=== PATIENT | male | born 1985 | race Caucasian/White ===

== ENCOUNTER 2016-12-21 16:41 | Emergency (ER) | payer MEDICAID, OTHER, SELFPAY | END 2016-12-21 17:23 | disposition left against medical advice (07) | LOC: ED 17:17 | DX: R51 Headache (principal) ==

== ENCOUNTER 2019-06-08 12:34 | Emergency (ER) | payer SELFPAY ==
[~2019-06-08] VITALS: Ht 182.9 cm; Wt 72.4 kg
--- NOTE | 2019-06-08 13:07 | NUR ---
NA X 1
[2019-06-08 13:18] VITALS: BP 130/90
--- NOTE | 2019-06-08 13:36 | NUR ---
RADIOLOGY DELAY: NO ANSWER @ 0920
--- NOTE | 2019-06-08 14:20 | NUR ---
NA X 1 [id number]
--- NOTE | 2019-06-08 14:46 | NUR ---
NOT IN LOBBY
== END 2019-06-08 14:48 | disposition left against medical advice (07) ==
LOC: ED 14:42
DX: M25.572 Pain in left ankle and joints of left foot (principal)
CPT/HCPCS: 99281

== ENCOUNTER 2019-08-22 05:43 | Emergency (ER) | payer SELFPAY ==
[~2019-08-22] VITALS: Ht 175.3 cm; Wt 73.3 kg
[2019-08-22 05:45] VITALS: BP 127/75
--- NOTE | 2019-08-22 07:35 | NUR ---
PT OK FOR D/C. PT REFUSES THOMAS WRAP AND CRUTCHES. PT WITH STEADY GAIT UPON D/C, HAS ALL OWN BELONGINGS.
== END 2019-08-22 07:43 | disposition home or self-care (01) ==
LOC: ED 06:03
DX: S93.412A Sprain of calcaneofibular ligament of left ankle, initial encounter (principal); Z59.0 Homelessness; X58.XXXA Exposure to other specified factors, initial encounter; Y93.89 Activity, other specified; Y92.89 Other specified places as the place of occurrence of the external cause; Y99.8 Other external cause status
CPT/HCPCS: 99283

== ENCOUNTER 2020-08-10 01:59 | Emergency (ER) | payer MEDICARE ==
[~2020-08-10] VITALS: Ht 175.3 cm; Wt 73.6 kg
[2020-08-10 02:51] VITALS: BP 118/75
--- NOTE | 2020-08-10 02:53 | NUR ---
Patient given discharge instructions and they have confirmed that they understand the instructions. PT DOZING INTERMITTENTLY DURING DC INSTRUCTIONS. AROUSABLE TO VERBAL STIMULI. Patient ambulatory with steady gait. NO PERSONAL BELONGINGS LEFT IN ROOM AFTER DC
== END 2020-08-10 02:55 | disposition home or self-care (01) ==
LOC: ED 02:49
DX: B34.9 Viral infection, unspecified (principal); R05 Cough
CPT/HCPCS: 99282